=== PATIENT | female | born 1980 | race Caucasian/White ===

== ENCOUNTER → 2020-05-29 07:54 | Outpatient (CLI) | payer OTHER, SELFPAY ==
[2020-02-01 14:08] VITALS: BMI 31.4
[2020-05-29 08:27] LABS: Absolute Lymphocyte Count 1.18 X10^3/uL (0.83-4.51); Absolute Neutrophil Count 2.9 X10^3/uL (2.0-7.7); Basophil# 0.04 X10^3/uL; Basophil% 0.8 % (0-1); Eosinophil# 0.12 X10^3/uL; Eosinophils% 2.5 % (0-5); Hematocrit 41.1 % (37-47); Hemoglobin 13.5 g/dL (12.0-15.0); Lymphocyte # 1.18 X10^3/ul (4.0); Lymphocyte % 24.3 % (19-41); Mean Corp Hgb Conc 32.8 g/dL (32-36); Mean Corpuscular Hgb 29.9 pg (27.0-32.0); Mean Corpuscular Volume 90.9 fL (81-99); Mean Platelet Vol. 10.1 fl (6.2-12.0); Monocyte# 0.58 X10^3/uL; Monocyte% 11.9 % (0-10); NRBC Flagged by Analyzer 0 % (0-5); Neutrophil # 2.93 X10^3/uL (2.7-7.7); Neutrophil % 60.3 % (47-70); Platelet Count 255 K/mm3 (150-450); RBC Distribution Width CV 12.3 % (11.6-14.6); RBC Distribution Width SD 40.7 fl (35.1-43.9); Red Blood Count 4.52 M/mm3 (4.2-5.4); White Blood Count 4.9 K/mm3 (4.4-11.0)
[2020-05-29 08:57] LABS: ALB/GLOB Ratio 0.9 RATIO (0.9-2.4); AST(SGOT) 17 U/L (15-37); Alanine Aminotransfer ALT/SGPT 30 U/L (13-56); Albumin, Serum 3.5 g/dL (3.2-5.0); Alkaline Phosphatase 63 U/L (45-117); Anion Gap 4 (5-15); BUN 13 mg/dL (7-18); Calcium,Total 8.3 mg/dL (8.5-10.1); Chloride 104 mmol/L (98-107); Cholesterol 140 mg/dL (200); Creatinine, Serum 0.76 mg/dL (0.55-1.02); EST Glomerular Filtration Rate 89 mL/min (>60); Est Glom Filt Rate - Afr Amer 107 mL/min (>60); Globulin 3.8 g/dL (2.2-4.2); Glucose 93 mg/dL (74-106); High Density Lipoprotein 35 mg/dL; Potassium 4.2 mmol/L (3.5-5.1); Protein, Total 7.3 g/dL (6.4-8.2); Sodium Level 136 mmol/L (136-145); Triglycerides 54 mg/dL; Very Low Density Lipoprotein 11 mg/dL (5-40)
[2020-06-01 20:07] LABS: Alternaria alternata <0.10 kU/L (Class 0); Aspergillus fumigatus <0.10 kU/L (Class 0); Bahia Grass <0.10 kU/L (Class 0); Beef <0.10 kU/L (Class 0); Bermuda Grass <0.10 kU/L (Class 0); Bluegrass, Kentucky <0.10 kU/L (Class 0); Cat Hair/Dander, Standard 4.52 kU/L (Class IV); Cedar, Mountain <0.10 kU/L (Class 0); Cladosporium herbarum <0.10 kU/L (Class 0); Cockroach, American <0.10 kU/L (Class 0); Corn 0.11 kU/L (Class 0/I); D farinae Mite <0.10 kU/L (Class 0); D pteronyssinus <0.10 kU/L (Class 0); Dog Epithelia 0.21 kU/L (Class 0/I); Egg, Whole <0.10 kU/L (Class 0); Elm, American White 0.14 kU/L (Class 0/I); Hazelnut Tree 0.11 kU/L (Class 0/I); Hickory, White 0.15 kU/L (Class 0/I); Johnson Grass 0.11 kU/L (Class 0/I); Maple/Box Elder <0.10 kU/L (Class 0); Milk (Cow) <0.10 kU/L (Class 0); Mucor racemosus <0.10 kU/L (Class 0); Mugwort <0.10 kU/L (Class 0); Mulberry, White <0.10 kU/L (Class 0); Oak, White 0.11 kU/L (Class 0/I); Peanut 0.23 kU/L (Class 0/I); Penicillium chrysogen <0.10 kU/L (Class 0); Pigweed, Rough <0.10 kU/L (Class 0); Plantain, English <0.10 kU/L (Class 0); Pork <0.10 kU/L (Class 0); Ragweed, Short/Common <0.10 kU/L (Class 0); Sheep Sorrel(Dock) 0.13 kU/L (Class 0/I); Soybean <0.10 kU/L (Class 0); Stemphylium herbarum <0.10 kU/L (Class 0); Sweet Gum 0.16 kU/L (Class 0/I); Sycamore, American 0.12 kU/L (Class 0/I); Wheat <0.10 kU/L (Class 0)
[2020-06-01 21:10] LABS: Chocolate <0.10 kU/L (Class 0)
== END ==
PROVIDERS: PCP Family Medicine; Referring Provider Family Medicine; Visit Provider Family Medicine
DX: E66.9 Obesity, unspecified (principal); Z13.1 Encounter for screening for diabetes mellitus; J45.909 Unspecified asthma, uncomplicated; J30.2 Other seasonal allergic rhinitis; Z13.220 Encounter for screening for lipoid disorders
CPT/HCPCS: 36415; 80053; 80061; 85025; 86003; 86005

== ENCOUNTER → 2020-06-24 | Outpatient (CLI) | payer OTHER, SELFPAY ==
[2020-06-24 14:43] VITALS: BMI 32.4
[2020-06-28 08:43] LABS: HPV APTIMA, High Risk Negative (Negative)
== END | disposition home or self-care (01) ==
LOC: LABSPEC 16:30
PROVIDERS: PCP Family Medicine; Referring Provider Nurse Practitioner Women's Health; Visit Provider Nurse Practitioner Women's Health
DX: Z12.4 Encounter for screening for malignant neoplasm of cervix (principal)
CPT/HCPCS: 87624; 88175; G0145

== ENCOUNTER → 2020-07-08 07:14 | Outpatient (CLI) | payer OTHER, SELFPAY ==
[2020-06-24 14:43] VITALS: BMI 32.4
--- NOTE | 2020-07-08 07:17 | BI_ITS ---
MAMMOGRAPHY - BILATERAL SCREENING REASON FOR EXAM: Female, 39 years old. Routine annual screening examination. PERTINENT HISTORY: Non-contributory. TECHNIQUE: Digital bilateral breast sumaya (3D mammographic acquisition) in the CC and MLO projections. 2-D mediolateral oblique (MLO) and craniocaudad (CC) views of both breasts were obtained. CAD: Full Field Digital Mammography with Computer Added Detection was performed. COMPARISON: None. Baseline examination. FINDINGS: Breast Composition: The breasts are heterogeneously dense, which may obscure small masses. There is a 1 cm x 1.2 cm focal area of the questionable spiculated nodule in the deep central portion of the right breast. The patient will be recalled for additional views including 90 degree lateral and compression spot views of the right breast. No other significant abnormalities are identified. BI/SCRN MAMM (CAD)W/SUMAYA BILAT IMPRESSION: Possible 1 cm x 1.2 cm area of questionable spiculated nodule in the deep central portion of the right breast as described. The patient will be recalled for additional views. ASSESSMENT CATEGORY: BIRADS Category 0: Incomplete. Need additional imaging evaluation. A letter regarding these results will be sent to the patient by the facility within 30 days. Approximately 10% of breast cancers are not detected by mammography. A normal mammogram should not delay biopsy of a clinically suspicious abnormality. [id number] Electronically Signed: Alvarez Bunn MD at 9:05 EDT , Service support ,
== END ==
PROVIDERS: PCP Family Medicine; Referring Provider Nurse Practitioner Women's Health; Visit Provider Nurse Practitioner Women's Health
DX: Z12.31 Encounter for screening mammogram for malignant neoplasm of breast (principal)
CPT/HCPCS: 77063; 77067

== ENCOUNTER → 2020-07-11 14:17 | Outpatient (CLI) | payer OTHER, SELFPAY ==
[2020-06-24 14:43] VITALS: BMI 32.4
--- NOTE | 2020-07-11 14:23 | BI_ITS ---
MAMMOGRAPHY - UNILATERAL DIAGNOSTIC: RIGHT BREAST REASON FOR EXAM: Female, 39 years old. Abnormal screening mammogram. PERTINENT HISTORY: Non-contributory. TECHNIQUE: Compression spot view of the right breast in the cranial cavity projection was obtained. CAD: Full Field Digital Mammography with Computer Added Detection was performed. COMPARISON: Comparison is made with prior mammogram dated 07/08/2020. FINDINGS: Breast Composition: The breasts are heterogeneously dense, which may obscure small masses. The previously seen focal area of architectural distortion is not seen on this additional view. Correlation with ultrasound is recommended. No other significant abnormalities are identified. BI/DIAG MAMM W/CAD, UNILAT IMPRESSION: No abnormalities seen on the additional view. Correlation with ultrasound is recommended. ASSESSMENT CATEGORY: BIRADS Category 0: Incomplete. Need additional imaging evaluation. A letter regarding these results will be sent to the patient by the facility within 30 days. Approximately 10% of breast cancers are not detected by mammography. A normal mammogram should not delay biopsy of a clinically suspicious abnormality. Electronically Signed: Alvarez Bunn MD at 15:33 EDT , Service support ,
--- NOTE | 2020-07-11 14:23 | US_ITS ---
STUDY: ULTRASOUND BREAST - LEFT REASON FOR EXAM: Female, 39 years old. Abnormal screening mammogram. TECHNIQUE: Axial and longitudinal images of the LEFT breast were performed with a high resolution ultrasound transducer. # OF IMAGES: 47 COMPARISON: Comparison is made with prior mammogram done earlier today. FINDINGS: LEFT Breast: The upper half of the breast was examined by ultrasound. Mildly dilated retroareolar ducts. US/Breast Limited Unilateral IMPRESSION: Mildly dilated retroareolar ducts. ASSESSMENT CATEGORY: BIRADS Category 2: Benign. A letter regarding these results will be sent to the patient by the facility within 30 days. Electronically Signed: Alvarez Bunn MD at 15:51 EDT , Service support ,
== END ==
PROVIDERS: PCP Family Medicine; Referring Provider Nurse Practitioner Women's Health; Visit Provider Nurse Practitioner Women's Health
DX: R92.8 Other abnormal and inconclusive findings on diagnostic imaging of breast (principal)
CPT/HCPCS: 76642; 77065

== ENCOUNTER 2020-08-13 13:00 | Outpatient (RCR) | payer OTHER, SELFPAY ==
[2020-02-01 14:08] VITALS: BMI 31.4
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
--- NOTE | 2020-08-13 14:09 | HP.PTDCSUM ---
It has been my pleasure to treat MAYR JIMENEZ referred by Dr. Fuad Nickerson MD, with the diagnosis of NECK PAIN for a total of 17 visit(s). Discharge Date: 08/13/20 Please see the following information for a summary of their discharge status. Subjective: PATIENT REPORTS WITH ALL THE MOVING HER SX'S ARE TOLERABLE BUT NOT GETTING BETTER. STATES HER SX'S ARE LETTING HER FUNCTION MORE THAN USUAL BUT HAS BEEN DOING MORE WORK WITH MOVING THAN USUSAL. HASN'T BEEN ABLE TO REST MUCH. PATIENT REPORTS SHE IS NOT GOING TO JOIN A GYM WHEN PT IS OVER. STATES SHE WANTS TO CONTINUE WITH HEP. PATIENT REPORTS 75 TO 80% IMPROVEMENT. R SHLD Pain Intensity (Out of 10): Unrated R NECK Pain Intensity (Out of 10): Unrated % Improvement: 80 Objective/Function: ALL PT GOALS HAVE BEEN MET AND PATIENT IS APPROPRIATE FOR DISCHARGE. Goal 1:: DECREASE C/O NECK SX'S. Goal Progress: Goal Met Goal 2:: IMPROVE PERSONAL CARE, READING, SLEEP, DRIVING AND RECREATIONAL FUNCTION. Goal Progress: Goal Met Goal 3:: INSTRUCT IN PROPHYLAXIS Goal Progress: Goal Met Plan: D/C TO [facility]P. PATIENT IS AGREEABLE. If there are questions or concerns regarding this patient's physical therapy, please feel free to call me at [phone]. Thank you for the referral of this patient. Sincerely, Micaela Hogue, PT, Cert MDT
== END 2020-08-13 19:00 | disposition home or self-care (01) ==
LOC: PT 13:00
PROVIDERS: PCP Family Medicine; Referring Provider Family Medicine; Visit Provider Family Medicine
DX: M54.2 Cervicalgia (principal); M25.511 Pain in right shoulder
CPT/HCPCS: 97014; 97035; 97110; 97112; 97162; 97530; G0283

== ENCOUNTER → 2020-09-04 06:34 | Outpatient (CLI) | payer OTHER, SELFPAY ==
[2020-06-24 14:43] VITALS: BMI 32.4
--- NOTE | 2020-09-04 06:35 | MRI_ITS ---
STUDY: MRI RIGHT SHOULDER REASON FOR EXAM: Female, 39 years old. Right shoulder pain, no helped by PT TECHNIQUE: Standardized fat and water weighted pulse sequences were obtained in all 3 orthogonal planes. COMPARISON: None. FINDINGS: Moderate subscapularis tendinosis with partial tear of the deep fibers. Mild/moderate supraspinatus tendinosis. Mild infraspinatus tendinosis. Normal teres minor tendon. No muscle atrophy. Moderate intracapsular long biceps tendinosis with slight medial subluxation. Labrum intact with fraying of the biceps labral anchor. Capsular ligaments intact. Normal rotator cuff interval. Glenohumeral cartilage preserved. Mild acromioclavicular joint arthrosis. Downward sloping acromion. No acute fracture, dislocation or cortical destruction. Anterior interval narrowing/impingement. Glenohumeral joint fluid physiologic. No subacromial subdeltoid bursitis. Intact coracohumeral and coracoacromial ligaments. Normal quadrilateral space. Normal axillary space. Normal deltoid muscle. Normal trapezius muscle. MRI/Upper Ext Joint Only(Routine) IMPRESSION: Rotator cuff tendinosis with partial subscapularis deep fiber tear Moderate intracapsular long biceps tendinosis with slight medial subluxation Labrum intact with fraying of the biceps labral anchor Mild AC joint arthrosis, downward sloping acromion and anterior impingement Electronically Signed: Baudilio Mendez DO at 9:29 EDT Tel , Service support ,
== END ==
PROVIDERS: PCP Family Medicine; Referring Provider Family Medicine; Visit Provider Family Medicine
DX: M25.511 Pain in right shoulder (principal)
CPT/HCPCS: 73221